=== PATIENT | female | born 1995 | race Caucasian/White ===

== ENCOUNTER 2017-03-06 06:15 | Emergency (ER) | payer BC ==
[~2017-03-06] VITALS: Ht 172.7 cm; Wt 46.8 kg
[2017-03-06 09:04] VITALS: BP 99/60
== END 2017-03-06 09:00 | disposition short-term general hospital (02) ==
LOC: ED 06:15
DX: N83.201 Unspecified ovarian cyst, right side (principal); Z85.43 Personal history of malignant neoplasm of ovary
CPT/HCPCS: J0595; J1885; J2060; J2405; Q9967

== ENCOUNTER 2019-08-21 11:21 | Emergency (ER) | payer BC ==
[~2019-08-21] VITALS: Ht 172.7 cm; Wt 59.1 kg
[2019-08-21] MEDS ORDERED: DULOXETINE60 MG PO (11:28)
[2019-08-21 11:56] LABS: EOS # 0.2 (0.04-0.40); EOS % 3.4 % (1.0-5.0); HEMATOCRIT 44.8 % (37.0-47.0); HEMOGLOBIN 14.9 g/dL (12.5-16.0); LYMPH# 1.4 (1.50-4.00); MEAN CELL VOLUME 86 fl (78-100); MEAN CORPUSCULAR HEMOGLOBIN 29 pg (27-31); MEAN CORPUSCULAR HGB CONC 33 g/dL (33-37); MEAN PLATELET VOLUME 9.4 fl (7.4-10.4); MONO # 0.5 (0.20-0.80); NEU # 4.1 (1.40-6.50); PLATELET COUNT 263 K/mm3 (130-400); RED BLOOD COUNT 5.21 M/mm3 (4.10-5.30); RED CELL DISTRIBUTION WIDTH 12.3 % (11.5-14.5); WHITE BLOOD COUNT 6.2 K/mm3 (4.8-10.8)
[2019-08-21 12:03] LABS: POTASSIUM 3.5 mmol/L (3.5-5.1)
[2019-08-21 12:04] LABS: URINE APPEARANCE HAZY; URINE BILIRUBIN NEGATIVE (NEGATIVE); URINE BLOOD NEGATIVE (NEGATIVE); URINE COLOR YELLOW; URINE GLUCOSE NEGATIVE (NEGATIVE); URINE KETONE NEGATIVE (NEGATIVE); URINE LEUKOCYTE ESTERASE TRACE (NEGATIVE); URINE NITRATE NEGATIVE (NEGATIVE); URINE PROTEIN(semi-quant) NEGATIVE (NEGATIVE); URINE UROBILINOGEN NORMAL (NORMAL)
[2019-08-21 12:06] LABS: TOTAL PROTEIN 8.4 g/dL (6.4-8.3)
[2019-08-21 12:07] LABS: TOTAL BILIRUBIN 0.6 mg/dL (0.2-1.2)
[2019-08-21] MEDS ORDERED: FIORICET 325 MG1 TAB PO (13:17)
[2019-08-21 13:56] VITALS: BP 113/67
== END 2019-08-21 13:35 | disposition home or self-care (01) ==
LOC: ED 11:21
PROVIDERS: Nurse Practitioner Primary Care
DX: R56.9 Unspecified convulsions (principal); R51 Headache; Z85.43 Personal history of malignant neoplasm of ovary
CPT/HCPCS: J1200; J1885

== ENCOUNTER → 2020-03-29 | Outpatient (CLI) | payer BC ==
[~2020-03-29] MED LIST: DULOXETINE60 MG PO; FIORICET 325 MG1 TAB PO
== END ==
LOC: RAD 15:45
DX: I30.0 Acute nonspecific idiopathic pericarditis (principal); R06.01 Orthopnea